=== PATIENT | female | born 1975 | race Caucasian/White ===

== ENCOUNTER → 2016-03-16 | Outpatient (CLI) | payer BC ==
[2016-03-16 08:22] LABS: Basophils % (A) 0 %; CH 30.6; Eosinophils # (A) 0.2 k/uL (0-0.7); Eosinophils % (A) 2 %; HCT 43.5 % (34.0-46.0); HDW 2.64; HGB 14.3 gm/dL (11.4-16.0); Luc # (Auto) 0.21; Luc % (Auto) 3; Lymphocytes # (A) 2.1 k/uL (1.0-4.8); Lymphocytes % (A) 27 %; MCH 29.7 pg (25.0-35.0); MCHC 32.8 g/dL (31.0-37.0); MCV 90.5 fL (80.0-100.0); Mean Platelet Volume 6.4; Monocytes # (A) 0.6 k/uL (0-1.0); Monocytes % (A) 8 %; Neutrophils # (A) 4.7 k/uL (1.3-7.7); Neutrophils % (A) 61 %; RBC 4.81 m/uL (3.80-5.40); RDW 12.8 % (11.5-15.5); WBC 7.7 k/uL (3.8-10.6); WBC (Perox) 7.79
[2016-03-16 08:37] LABS: ALT 41 U/L (9-52); AST 22 U/L (14-36); Alkaline Phosphatase 66 U/L (38-126); Anion Gap 13 mmol/L; Blood Urea Nitrogen 23 mg/dL (7-17); Calcium 9.3 mg/dL (8.4-10.2); Carbon Dioxide 25 mmol/L (22-30); Chloride 106 mmol/L (98-107); Cholesterol 184 mg/dL (<200); Glucose 87 mg/dL (74-99); HDL Cholesterol 57 mg/dL (40-60); Non-African American GFR(MDRD) >60 (>60 ml/min/1.73 sqM); Potassium 4.5 mmol/L (3.5-5.1); Sodium 144 mmol/L (137-145); Total Bilirubin 1.2 mg/dL (0.2-1.3); Total Protein 7.8 g/dL (6.3-8.2); Triglycerides 162 mg/dL (<150)
== END | disposition home or self-care (01) ==
LOC: LABWHC1 07:19
PROVIDERS: ATTEND Nurse Practitioner Family
DX: Z12.72 Encounter for screening for malignant neoplasm of vagina (principal); Z11.51 Encounter for screening for human papillomavirus (HPV); Z01.419 Encounter for gynecological examination (general) (routine) without abnormal findings
CPT/HCPCS: 36415; 80053; 80061; 85025

== ENCOUNTER → 2016-03-16 | Outpatient (CLI) | payer BC ==
--- NOTE | 2016-03-17 10:02 | MM ---
Reason for exam: screening (asymptomatic). Last mammogram was performed 7 years and 1 month ago. History: Patient is nulliparous. Family history of breast cancer in maternal grandmother. Taking hormonal contraceptives for 10 years beginning at age 23. Physical Findings: A clinical breast exam by your physician is recommended on an annual basis and results should be correlated with mammographic findings. MG Screening Mammo w CAD Bilateral CC and MLO view(s) were taken. Prior study comparison: February 11, 2009, right breast mammogram dig work up. February 05, 2009, bilateral digital screening mammogram. There are scattered fibroglandular densities. Finding: There are typically benign regional calcifications in the right breast. There is no discrete abnormality. ASSESSMENT: Benign, BI-RAD 2 RECOMMENDATION: Routine screening mammogram of both breasts in 1 year.
== END | disposition home or self-care (01) ==
LOC: RADMAMWWP 06:59
PROVIDERS: ATTEND Family Medicine
DX: Z12.31 Encounter for screening mammogram for malignant neoplasm of breast (principal)

== ENCOUNTER → 2016-07-01 | Outpatient (CLI) | payer BC ==
--- NOTE | 2016-07-01 22:04 | US ---
EXAMINATION TYPE: US venous doppler duplex LE LT DATE OF EXAM: 07/01/2016 8:57 PM COMPARISON: Prior in PACS CLINICAL HISTORY: Swelling. SIDE PERFORMED: Left TECHNIQUE: The lower extremity deep venous system is examined utilizing real time linear array sonog dimas with graded compression, doppler sonography and color-flow sonography. VESSELS IMAGED: External Iliac Vein (EIV) Common Femoral Vein Deep Femoral Vein Greater Saphenous Vein * Femoral Vein Popliteal Vein Small Saphenous Vein * Proximal Calf Veins (* superficial vessels) IMPRESSION: NEGATIVE FOR DEEP VENOUS THROMBOSIS, LEFT LOWER EXTREMITY.
== END | disposition home or self-care (01) ==
LOC: RADUSMAIN 20:31
PROVIDERS: ATTEND Physician Assistant Medical
DX: R22.42 Localized swelling, mass and lump, left lower limb (principal)

== ENCOUNTER → 2017-04-22 | Outpatient (CLI) | payer BC ==
--- NOTE | 2017-04-25 10:50 | MM ---
Reason for exam: screening (asymptomatic). Last mammogram was performed 1 year and 1 month ago. History: Patient is nulliparous. Family history of breast cancer in maternal grandmother. Taking hormonal contraceptives for 10 years beginning at age 23. Physical Findings: A clinical breast exam by your physician is recommended on an annual basis and results should be correlated with mammographic findings. MG Screening Mammo w CAD Bilateral CC and MLO view(s) were taken. Prior study comparison: March 16, 2016, bilateral MG screening mammo w CAD. February 11, 2009, right breast mammogram dig work up. There are scattered fibroglandular densities. No suspicious abnormality. No significant changes when compared with prior studies. ASSESSMENT: Negative, BI-RAD 1 RECOMMENDATION: Routine screening mammogram of both breasts in 1 year.
== END | disposition home or self-care (01) ==
LOC: RADMAMWWP 06:59
PROVIDERS: ATTEND Family Medicine
DX: Z12.31 Encounter for screening mammogram for malignant neoplasm of breast (principal)
CPT/HCPCS: 77067

== ENCOUNTER → 2017-05-12 | Outpatient (CLI) | payer BC ==
--- NOTE | 2017-05-12 17:48 | CONS ---
CONSULTATION DATE OF SERVICE: 05/12/2017 41-year-old lady has been re-evaluated in Sleep Center for obstructive sleep apnea- hypopnea syndrome. Last time I show the patient was in 2013. At that time, we did sleep studies which showed mild obstructive sleep apnea-hypopnea syndrome. Since that time, the patient is on treatment with CPAP and she is using her CPAP equipment every night for the whole night and she cannot sleep without her CPAP machine. With CPAP no snoring and quality of sleep is good. Her sleep schedule on working days from 11:00 p.m. to 6:30 a.m., on weekends from midnight or 1:00 a.m. until 7, 8 or 9:00 a.m. No problem in the falling asleep. She does have TV in bedroom. Sleeps on the side position. She may wake up from sleep up to 2 times with nocturia, but again there is no snoring. No sleepiness during the day. [place] Sleepiness Scale is 3. PAST MEDICAL HISTORY: Hypertension, history of cardiac arrhythmias, status post cardiac ablation. MEDICATIONS: Losartan. SOCIAL HISTORY: Quit smoking in 2004. Alcohol consumption occasional. REVIEW OF SYSTEMS: Basically negative. Patient's sleep through the night and no significant excessive daytime sleepiness. FAMILY HISTORY: Hypertension, hyperlipidemia, diabetes mellitus. PHYSICAL EXAM: GENERAL lady without distress. VITAL SIGNS BP 131/75, HR 68, RR 16, height 5 feet 8 inches, weight 278, BMI 42.2. Neck 16-1/4 inch in circumference. Temperature is 98.8, oxygen saturation room air 96%. HEENT PERRLA, EOMI, evaluation of oropharynx showed low position of soft palate. NECK Supple, no JVD. Thyroid is not palpable. LUNGS Clear to percussion and to auscultation. Good air exchange. No wheezing or rhonchi. HEART S1, S2 regular. No murmurs, gallops, or rubs. ABDOMEN Obese. Soft and nontender. Bowel sounds are present. No organomegaly appreciated. EXTREMITIES No clubbing or cyanosis. BANQUET COOK Awake, alert, and oriented X3. Cranial nerves 2 to 7 intact. There is no fasciculation or atrophy. noted. No focal deficits observed. I checked the patient's CPAP unit. CPAP pressure is 10 cm of water. Patient using equipment 100% of the time more than 4 hours. Average usage is 7 hours. IMPRESSION: 1. Obstructive sleep apnea-hypopnea syndrome. Patient demonstrated 100% compliance with treatment benefitting from treatment on treatment with a pressure of 7 cm of water. Presently, no symptoms of excessive daytime sleepiness, which had been present four years ago. 2. Obesity, BMI 42. Patient increased her weight around 17 pounds since the sleep study. 3. Hypertension. 4. History of cardiac arrhythmia. No recent episodes of cardiac arrhythmia after ablation and also while on treatment with CPAP. 5. Status post cardiac ablation procedure. PLAN: 1. Prescription for all necessary CPAP supplies including mask, tube, filters. 2. Continue to use CPAP equipment every night for the whole night. 3. No driving if feeling sleepiness. 4. Sleep hygiene with the time in bed for at least 8 hours. Thank you very much for allowing me to participate in management of your patient. Sincerely, Jamel Ac MD, PhD, FAASM Diplomat of [place] [employer] [place] [employer] Sack Sewer Machine of [facility] [place] [id number] / JLN: [id number] /
== END | disposition home or self-care (01) ==
LOC: SLEEP 16:06
PROVIDERS: ATTEND Internal Medicine
DX: G47.33 Obstructive sleep apnea (adult) (pediatric) (principal); I10 Essential (primary) hypertension; E66.9 Obesity, unspecified; Z99.89 Dependence on other enabling machines and devices; Z79.899 Other long term (current) drug therapy; Z87.891 Personal history of nicotine dependence; Z68.41 Body mass index [BMI] 40.0-44.9, adult; Z86.79 Personal history of other diseases of the circulatory system; Z98.890 Other specified postprocedural states
CPT/HCPCS: 99211

== ENCOUNTER → 2020-02-25 | Outpatient (CLI) | payer BC ==
--- NOTE | 2020-02-26 10:11 | MM ---
Reason for exam: screening (asymptomatic). Last mammogram was performed 2 years and 10 months ago. History: Patient is nulliparous. Family history of breast cancer in maternal grandmother. Took hormonal contraceptives for 10 years beginning at age 23. Physical Findings: A clinical breast exam by your physician is recommended on an annual basis and results should be correlated with mammographic findings. MG Screening Mammo w CAD Bilateral CC and MLO view(s) were taken. Prior study comparison: April 22, 2017, bilateral MG screening mammo w CAD. March 16, 2016, bilateral MG screening mammo w CAD. There are scattered fibroglandular densities. Benign calcifications. No significant changes when compared with prior studies. ASSESSMENT: Benign, BI-RAD 2 RECOMMENDATION: Routine screening mammogram of both breasts in 1 year.
== END | disposition home or self-care (01) ==
LOC: RADMAMWWP 07:58
PROVIDERS: ATTEND Obstetrics & Gynecology Obstetrics
DX: Z12.31 Encounter for screening mammogram for malignant neoplasm of breast (principal)
CPT/HCPCS: 77067

== ENCOUNTER → 2020-03-19 | Outpatient (CLI) | payer BC ==
--- NOTE | 2020-03-20 05:54 | SFUN ---
SLEEP CENTER FOLLOW UP NOTE DATE OF SERVICE: 03/19/2020 This is 44-year-old lady has been followed in the sleep Center for treatment of obstructive sleep apnea-hypopnea syndrome. The patient continues to use her CPAP equipment every night. She likes her machine. Denied any significant problems related to mask fitting, pressure or humidification. [place] Sleepiness Scale today is 5. I checked patient's CPAP unit. Pressure 7 cm of water, usage 29/30 nights for more than 4 hours with average usage is 7.06 hours. No information about apnea-hypopnea index on the machine. MEDICATIONS: Losartan, Cozaar. The patient forgot other medications. PHYSICAL EXAM: Patient in no distress. BP 134/87, HR 82, RR 15, height 5 feet 8 inches 3/4, weight 301.4 pounds, temperature 98.5, oxygen saturation at room air 94%. Oropharynx low position of soft palate. NECK: Supple, no JVD. Thyroid is not palpable. LUNGS: Clear to percussion and to auscultation. Good air exchange. No wheezing or rhonchi. HEART: S1, S2 regular. No murmurs, gallops, or rubs. ABDOMEN: Obese. Soft and nontender. Bowel sounds are present. No organomegaly appreciated. EXTREMITIES: No clubbing or cyanosis. BAKER HELPER: Awake, alert, and oriented X3. Cranial nerves 2 to 7 intact. There is no fasciculation or atrophy. noted. No focal deficits observed. IMPRESSION: 1. Obstructive sleep apnea-hypopnea syndrome. Patient demonstrated 100% compliance with treatment benefitting from treatment. 2. Obesity. The patient increased her weight more than 20 pounds since previous visit. 3. Hypertension. 4. History of cardiac arrhythmia. 5. Status post cardiac ablation procedure. PLAN: 1. Patient will continue to use PAP equipment every night for the whole night. 2. Sleep hygiene with regular time in bed for at least 7-1/2 to 8 hours. 3. Precautions related to driving. No driving if feeling sleepiness. 4. I will maintain all necessary prescription for PAP supplies including mask, tube, filters. 5. Watching weight. 6. No driving if feeling sleepiness. 7. Follow-up visit in 6 months or earlier if patient has any problems. Thank you very much for allowing me to participate in management of your patient. Sincerely, Jamel Ac MD, PhD, FAASM Diplomat of [place] [employer] [place] [employer] Rent Control Office Manager of [facility] [place] [email or web address] / JLN: [id number] /
== END | disposition home or self-care (01) ==
LOC: SLEEP 16:04
PROVIDERS: ATTEND Internal Medicine
DX: G47.33 Obstructive sleep apnea (adult) (pediatric) (principal); E66.9 Obesity, unspecified; I10 Essential (primary) hypertension; Z86.79 Personal history of other diseases of the circulatory system; Z98.890 Other specified postprocedural states; Z79.899 Other long term (current) drug therapy

== ENCOUNTER 2021-01-14 14:13 | Emergency (ER) | payer BC ==
[2021-01-14] MEDS ORDERED: ACETAMINOPHEN TAB 500 MG TAB PO STA (15:58)
--- NOTE | 2021-01-14 16:03 | ED ---
URI HPI - General Chief Complaint: Upper Respiratory Infection Stated Complaint: COVID+,wants antibodies Time Seen by Provider: 01/14/21 15:23 Source: patient, family, RN notes reviewed Mode of arrival: ambulatory Limitations: no limitations - History of Present Illness Initial Comments: 45-year-old female presents emergency from with chief complaint of COVID-19. Patient states she just is a positive states that she had multiple tests this week states she is tested positive today. She states that the cough last couple days. Patient complains of fever chills and body aches no chest pain. - Related Data Allergies Allergy/AdvReac Type Severity Reaction Status Date / Time cephalexin [From Keflex] Allergy Rash/Hives Verified 01/14/21 15:02 pseudoephedrine AdvReac Rapid Verified 01/14/21 15:02 [From Sudafed] Heart Rate Review of Systems ROS Statement: Those systems with pertinent positive or pertinent negative responses have been documented in the HPI. ROS Other: All systems not noted in ROS Statement are negative. Past Medical History History of Any Multi-Drug Resistant Organisms: None Reported Additional Past Surgical History / Comment(s): ablation 2004 Smoking Status: Never smoker Past Alcohol Use History: None Reported Past Drug Use History: None Reported General Exam General appearance: alert, in no apparent distress Head exam: Present: atraumatic, normocephalic, normal inspection Eye exam: Present: normal appearance, PERRL, EOMI. Absent: scleral icterus, conjunctival injection, periorbital swelling ENT exam: Present: normal exam, mucous membranes moist Neck exam: Present: normal inspection. Absent: tenderness, meningismus, lymphadenopathy Respiratory exam: Present: normal lung sounds bilaterally. Absent: respiratory distress, wheezes, rales, rhonchi, stridor Cardiovascular Exam: Present: regular rate, normal rhythm, normal heart sounds. Absent: systolic murmur, diastolic murmur, rubs, gallop, clicks Course Vital Signs 01/14/21 14:59 Temperature 99.7 F H Pulse Rate 99 Respiratory 19 Rate Blood Pressure 127/99 O2 Sat by Pulse 98 Oximetry Medical Decision Making - Medical Decision Making Patient receive monoclonal antibodies, was discharged in stable condition return parameters discussed. Disposition Clinical Impression: COVID-19 Disposition: HOME SELF-CARE Condition: Stable Instructions (If sedation given, give patient instructions): Coronavirus Disease 2019 (COVID-19) Additional Instructions: Please return to the Emergency Department if symptoms worsen or any other concerns. Is patient prescribed a controlled substance at d/c from ED?: No Referrals: Gretel Lara III, MD [Primary Care Provider] - 1-2 days Time of Disposition: 16:02
[2021-01-14] MEDS ORDERED: CASIRIVIMAB (REGN10933) (EUA) 600 MG, IMDEVIMAB (REGN10987) (EUA) 600 MG in SODIUM CHLO... IVPB ONE (16:30)
[2021-01-14] MEDS ORDERED: SODIUM CHLORIDE 0.9% 50 ML IVPB ONE (16:30)
[2021-01-14 16:44] VITALS: RESP 18
[2021-01-14 18:31] VITALS: BP 122/79; PULSE 93; TEMP 98.8
== END 2021-01-14 18:31 | disposition home or self-care (01) ==
LOC: EC 14:13
DX: U07.1 COVID-19 (principal); Z88.1 Allergy status to other antibiotic agents; Z88.8 Allergy status to other drugs, medicaments and biological substances
CPT/HCPCS: 99283

== ENCOUNTER → 2021-02-25 | Outpatient (CLI) | payer BC ==
--- NOTE | 2021-02-26 15:00 | MM ---
Reason for exam: screening (asymptomatic). Last mammogram was performed 1 year ago. History: Patient is nulliparous. Family history of breast cancer in maternal grandmother. Took hormonal contraceptives for 10 years beginning at age 23. Physical Findings: A clinical breast exam by your physician is recommended on an annual basis and results should be correlated with mammographic findings. MG Screening Mammo w CAD Bilateral CC and MLO view(s) were taken. Prior study comparison: February 25, 2020, bilateral MG screening mammo w CAD. April 22, 2017, bilateral MG screening mammo w CAD. There are scattered fibroglandular densities. There are benign appearing round calcifications bilaterally. There is no discrete abnormality. ASSESSMENT: Benign, BI-RAD 2 RECOMMENDATION: Routine screening mammogram of both breasts in 1 year.
== END | disposition home or self-care (01) ==
LOC: RADMAMWWP 07:39
PROVIDERS: ATTEND Obstetrics & Gynecology
DX: Z12.31 Encounter for screening mammogram for malignant neoplasm of breast (principal); Z80.3 Family history of malignant neoplasm of breast
CPT/HCPCS: 77067

== ENCOUNTER → 2022-01-06 | Outpatient (CLI) | payer BC ==
--- NOTE | 2022-01-06 17:18 | P.PN ---
Subjective DATE: 01/06/2022 FOLLOW UP VISIT. Patient with obstructive sleep apnea hypopnea syndrome return to sleep center for follow-up visit. Information from previous visit have been reviewed. Patient is using PAP equipment every night for the whole night, getting PAP supplies in time. The patient does not have significant problems with the mask, PAP unit and humidification. [place] sleepiness scale is 5, which is normal. I checked information from PAP unit. Pap unit is old, no information about apnea-hypopnea index PAP unit pressure 7 cm H2O. Usage is 90 % for more then 4 hours, average 7 hours per night. Leak is []l/m, which is in acceptable range. Apnea Hypopnea Index is [], which is normal. MEDICATIONS:1. Losartan 100 mg once a day 2. Triamterene During physical exam: GENERAL: A pleasant patient without any distress. VITAL SIGNS: BP 148/73, HR 88, RR 16, weight 312, patient increased to wait on about 11 pounds comparing to the previous visit, height 5 foot 8 inches, body mass index 47.4, temperature 98.6, oxygen saturation at room air 95 % . HEENT: PERRLA, EOMI.low position of soft palate, Mallapati 3. NECK: Supple. No JVD. LUNGS: Clear to percussion and to auscultation. Good air exchange. No wheezing or rhonchi. HEART: S1, S2 regular. ABDOMEN: Soft and nontender. Obese EXTREMITIES: No clubbing or cyanosis. LEMON GROWER: Awake, alert, and oriented x3. No focal deficit. Impressions: 1. Obstructive sleep apnea-hypopnea syndrome. Patient demonstrated great compliance with treatment, benefiting from treatment. 2. Obesity, body mass index 47.4. 3. Hypertension. 4. History of cardiac arrhythmia. 5. Status post cardiac ablation procedure. Plan: 1. Continue using PAP equipment every night for the whole night. 2. Prescription to replace CPAP unit to AutoPAP. [facility] CPAP unit is old, doesn't have information about apnea-hypopnea index. 3. PAP unit should stay lower then position of the head. 4. Advised patient to remove all remaining water from humidifier canister daily and make it dry after each usage. Refill canister with fresh distilled water before each usage. 5. Sleep hygiene with regular time in bed for at least 8 hours. 6. Precautions related to driving. No driving if feel any sleepiness. 7. I will maintain prescription for PAP supplies including mask, tube, filters. 8. Follow up visit in 1-2 months after patient will get new CPAP unit. 9. Aggressive losing weight. Thank you very much for allowing me to participate in the management of your patient. Jamel Ac MD, PhD, FAASM. Diplomat of [place] [employer], Sleep Medicine Board by [place] [employer] Laser Systems Engineer of [facility] [place]
== END | disposition home or self-care (01) ==
LOC: SLEEP 16:42
PROVIDERS: ATTEND Internal Medicine
DX: G47.33 Obstructive sleep apnea (adult) (pediatric) (principal); E66.9 Obesity, unspecified; I10 Essential (primary) hypertension; Z68.42 Body mass index [BMI] 45.0-49.9, adult; Z86.79 Personal history of other diseases of the circulatory system

== ENCOUNTER → 2022-06-10 | Outpatient (CLI) | payer BC ==
[2022-06-10 19:27] LABS: HCT 46.6 % (37.2-46.3); HGB 14.9 g/dL (12.0-15.0); MCH 29.3 pg (27.0-32.0); MCV 91.6 fL (80.0-97.0); NRBC Per 100 WBC 0 /100 WBCS (0.0-0.0); Platelet Count 355 X 10*3/uL (140-440); RBC 5.09 X 10*6/uL (4.10-5.20); RDW 13.5 % (11.5-14.5); WBC 9.37 X 10*3/uL (4.50-10.00)
[2022-06-10 20:47] LABS: ALT 48 U/L (8-44); AST 43 U/L (13-35); African American GFR (CKD) 91.9 (60.0-200.0); Albumin 4.6 g/dL (3.8-4.9); Albumin/Globulin Ratio 1.45 (1.60-3.17); Alkaline Phosphatase 67 U/L (41-126); BUN/Creat Ratio 28.44 Ratio (12.00-20.00); Blood Urea Nitrogen 24.6 mg/dL (9.0-27.0); Calcium 10.5 mg/dL (8.7-10.3); Carbon Dioxide 26.6 mmol/L (20.0-27.5); Chloride 98 mmol/L (96-109); Chol/HDL Ratio 3.65 Ratio; Globulin 3.2 g/dL (1.6-3.3); Glucose 117 mg/dL (70-110); LDL Cholesterol,Calculated 109.2 mg/dL (0.0-131.0); Non-African American GFR(CKD) 79.3 (60.0-200.0); Potassium 4.1 mmol/L (3.5-5.5); Sodium 140 mmol/L (135-145); Total Protein 7.8 g/dL (6.2-8.2)
== END | disposition home or self-care (01) ==
LOC: LABWHC1 07:16
PROVIDERS: ATTEND Internal Medicine Clinical Cardiac Electrophysiology
DX: I10 Essential (primary) hypertension (principal); I51.7 Cardiomegaly; E66.9 Obesity, unspecified
CPT/HCPCS: 36415; 80053; 80061; 82627; 83036; 84439; 84443; 84481; 85027; 86038; 86140

== ENCOUNTER → 2022-11-04 | Outpatient (CLI) | payer BC ==
--- NOTE | 2022-11-04 17:04 | P.PN ---
Subjective DATE: 11/04/2022 FOLLOW UP VISIT. Patient with obstructive sleep apnea hypopnea syndrome return to sleep center for follow-up visit. Information from previous visit have been reviewed. Patient is using PAP equipment every night for the whole night, getting PAP supplies in time. The patient does not have significant problems with the mask, PAP unit and humidification. [place] sleepiness scale is 5, which is normal. I checked information from PAP unit. PAP unit pressure 5-10, average 9.9 cm H2O. Usage is 100 % for more then 4 hours, average 6.7 hours per night. Leak is 1 l/m, which is in acceptable range. Apnea Hypopnea Index is 0.6, which is normal. MEDICATIONS:1. Losartan 2. Triamteren 3. Wegovy During physical exam: GENERAL: A pleasant patient without any distress. VITAL SIGNS: BP 110/74, HR 99, RR 16 , weight to 90.8, temperature 98.5, oxygen saturation at room air 96 % . HEENT: PERRLA, EOMI.low position of soft palate, Mallapati 3 . NECK: Supple. No JVD. LUNGS: Clear to percussion and to auscultation. Good air exchange. No wheezing or rhonchi. HEART: S1, S2 regular. ABDOMEN: Soft and nontender. Slightly obese EXTREMITIES: No clubbing or cyanosis. TELESERVICES REPRESENTATIVE: Awake, alert, and oriented x3. No focal deficit. Impressions: 1. Obstructive sleep apnea-hypopnea syndrome. Patient demonstrated great compliance with treatment, benefiting from treatment. 2. Obesity, patient lost 26 pounds comparing to the previous visit. 3. Hypertension. 4. History of cardiac arrhythmia. 5. Status post cardiac ablation. Plan: 1. Continue using PAP equipment every night for the whole night. 2. To change air filter at least 1-2 times per month. 3. PAP unit should stay lower then position of the head. 4. Advised patient to remove all remaining water from humidifier canister daily and make it dry after each usage. Refill canister with fresh distilled water before each usage. 5. Sleep hygiene with regular time in bed for at least 8 hours. 6. Precautions related to driving. No driving if feel any sleepiness. 7. I will maintain prescription for PAP supplies including mask, tube, filters. 8. Follow up visit in 6 months or earlier if patient has any problems. 9. Watching and continue losing weight. Thank you very much for allowing me to participate in the management of your patient. Jamel Ac MD, PhD, FAASM. Diplomat of [place] [employer] Medicine, Sleep Medicine Board by [place] [employer] Medicine Electric Motor Tester of [facility] [place]
== END ==
LOC: 3 N SLEEP 16:28
PROVIDERS: ATTEND Internal Medicine
DX: G47.33 Obstructive sleep apnea (adult) (pediatric) (principal); E66.9 Obesity, unspecified; I10 Essential (primary) hypertension; Z98.890 Other specified postprocedural states; Z99.89 Dependence on other enabling machines and devices; Z86.79 Personal history of other diseases of the circulatory system; Z79.899 Other long term (current) drug therapy; Z88.1 Allergy status to other antibiotic agents; Z88.8 Allergy status to other drugs, medicaments and biological substances
CPT/HCPCS: 99212

== ENCOUNTER → 2022-11-19 | Outpatient (CLI) | payer BC ==
[2022-11-19 11:07] LABS: HCT 46.3 % (37.2-46.3); HGB 14.9 d/dL (12.0-15.0); MCH 29.6 pg (27.0-32.0); MCHC 32.2 d/dL (32.0-37.0); Mean Platelet Volume 10.7 FL (9.5-12.2); NRBC Per 100 WBC 0 X 10*3/uL (0.00-0.01); Platelet Count 426 X 10*3/uL (140-440); RBC 5.03 X 10*6/uL (4.10-5.20); RDW 14.1 % (11.5-14.5); WBC 8.33 X 10*3/uL (4.50-10.00)
[2022-11-19 14:19] LABS: BUN/Creat Ratio 22.88 Ratio (12.00-20.00); Blood Urea Nitrogen 18.3 mg/dL (9.0-27.0); Chloride 102 mmol/L (96-109); Chol/HDL Ratio 3.66 Ratio; Glucose 95 mg/dL (70-110); LDL Cholesterol,Calculated 89.7 mg/dL (0.0-131.0); Potassium 4.1 mmol/L (3.5-5.5); Sodium 136 mmol/L (135-145)
[2022-11-19 14:20] LABS: ALT 23 U/L (8-44); AST 19 U/L (13-35); Albumin 4.3 d/dL (3.8-4.9); Albumin/Globulin Ratio 1.59 Ratio (1.60-3.17); Alkaline Phosphatase 66 U/L (41-126); Calcium 9.2 mg/dL (8.7-10.3); Carbon Dioxide 22.4 mmol/L (21.6-31.8); Globulin 2.7 d/dL (1.6-3.3); Total Bilirubin 1.3 mg/dL (0.3-1.2)
== END | disposition home or self-care (01) ==
LOC: LABWHC1 07:37
PROVIDERS: ATTEND Physician Assistant Medical
DX: I10 Essential (primary) hypertension (principal); E66.9 Obesity, unspecified; R73.01 Impaired fasting glucose
CPT/HCPCS: 36415; 80053; 80061; 83036; 84443; 85027

== ENCOUNTER → 2023-01-20 | Outpatient (CLI) | payer BC ==
[2023-01-20 11:12] LABS: HCT 43.9 % (37.2-46.3); HGB 14.7 g/dL (12.0-15.0); MCH 29.5 pg (27.0-32.0); MCHC 33.5 g/dL (32.0-37.0); NRBC Per 100 WBC 0 X 10*3/uL (0.00-0.01); Platelet Count 367 X 10*3/uL (140-440); RBC 4.99 X 10*6/uL (4.10-5.20); RDW 13.2 % (11.5-14.5); WBC 8.19 X 10*3/uL (4.50-10.00)
[2023-01-20 11:25] LABS: Blood Urea Nitrogen 14.6 mg/dL (9.0-27.0); Chloride 100 mmol/L (96-109); Potassium 3.9 mmol/L (3.5-5.5); Sodium 136 mmol/L (135-145)
== END | disposition home or self-care (01) ==
LOC: LABPAT 07:06
PROVIDERS: ATTEND Internal Medicine Clinical Cardiac Electrophysiology
DX: Z01.812 Encounter for preprocedural laboratory examination (principal); I10 Essential (primary) hypertension; E78.5 Hyperlipidemia, unspecified
CPT/HCPCS: 80051; 82565; 84520; 85027

== ENCOUNTER 2023-01-25 13:29 | Day surgery (SDC) | payer BC ==
[2023-01-20 15:50] VITALS: BMI 43.0
[~2023-01-25 13:29] MED LIST: ALPRAZolam 0.25 MG TAB PO PRN; ALPRAZolam 0.5 MG TAB PO PRN; ASPIRIN 325 MG TAB PO STA; HEPARIN SODIUM,PORCINE (1 ML) 2,500 UNIT in SODIUM CHLORIDE 0.9% 250 ML IRRIGATION PRN; HEPARIN SODIUM,PORCINE 10,000 UNIT in SODIUM CHLORIDE 0.9% 1,000 ML IRRIGATION PRN; NITROGLYCERIN SL TABS 0.4 MG TAB SUBLINGUAL PRN
[2023-01-25] MEDS ORDERED: SODIUM CHLORIDE 0.9% 500 ML 500 ML IV ONE (13:57)
[2023-01-25 14:27] VITALS: RESP 16
[2023-01-25] MEDS ORDERED: LIDOCAINE 1% INJ 10MG/ML (20 ML MDV) ONE (17:39)
[2023-01-25] MEDS ORDERED: MIDAZOLAM 2 MG/2 ML VIAL IVP ONE (17:56)
[2023-01-25] MEDS ORDERED: LIDOCAINE 1% INJ 10MG/ML (30 ML VIAL-PF) SQ ONE (17:56)
[2023-01-25 18:32] LABS: O2 Sat Blood Gas 74.8 %
[2023-01-25 18:40] LABS: O2 Sat Blood Gas 92.9 %
[2023-01-25 18:42] LABS: O2 Sat Blood Gas 74.4 %
[2023-01-25 18:45] LABS: O2 Sat Blood Gas 73.9 %
--- NOTE | 2023-01-25 18:53 | P.EPPROC ---
- EP Procedure Note Electrophysiology Procedure Note: Diagnosis Elevated pulmonary artery pressures on noninvasive imaging History of hypertension Increased BMI Final diagnosis Normal right-sided pressures by invasive measurements No oxygen step up Procedure: Right heart cath and oxygen saturations Patient was brought to the EP lab in a fasting state. 1 mg of Versed was given. Patient is fairly awake through the procedure did local anesthesia to the right groin. Venous access obtained and an 8-Lux[place]bourg[place] sheath was placed in the right femoral vein A [place] after was floated into the right heart and the following measurements were made Pulmonary artery position 25/12 mmHg Oxygen saturation equals 75% Pulmonary wedge position 9/8 mmHg Oxygen saturation equals 93% Right ventricle 22/2 mmHg Oxygen saturation equals 74% Right atrium 8/7 mmHg Oxygen saturation equals 75% Catheter was removed. Venous sheaths was removed and Vascade closure device applied successfully. Patient tolerated the procedure well without any acute complications Conscious sedation Patient underwent EP procedure under conscious sedation/moderate sedation, monitoring of the level of consciousness and physiologic parameters including but not limited to vital signs and oxygenation. Patient tolerated the procedure well without any acute complications. Start time: 1736 Stop time: 1849
[2023-01-25] MEDS: SODIUM CHLORIDE 0.9% 1,000 ML in EMPTY BAG 1 BAG IV SCH (20:00)
[2023-01-25 20:18] VITALS: BP 109/71; PULSE 81; TEMP 99.2
[2023-01-25 20:31] LABS: Glucose,Whole Blood 74 mg/dL (70-110)
== END 2023-01-25 22:34 | disposition home or self-care (01) ==
LOC: CATHEP 13:29 → 3SCARD 18:15 → CATHEP 22:34
PROVIDERS: ATTEND Internal Medicine Clinical Cardiac Electrophysiology
DX: I27.20 Pulmonary hypertension, unspecified (principal); R73.03 Prediabetes; E78.5 Hyperlipidemia, unspecified; F17.210 Nicotine dependence, cigarettes, uncomplicated; Z79.899 Other long term (current) drug therapy
CPT/HCPCS: 93451; 85018; 82810; 81025; C1894; C1769; C1760; J2250; J2001

== ENCOUNTER → 2023-05-18 | Outpatient (CLI) | payer BC ==
[2023-05-18 17:04] VITALS: BP 121/77; PULSE 76; RESP 16; TEMP 98.1
--- NOTE | 2023-05-18 17:08 | P.PN ---
Subjective DATE: 05/18/2023 FOLLOW UP VISIT. Patient with obstructive sleep apnea hypopnea syndrome return to sleep center for follow-up visit. Information from previous visit have been reviewed. Patient is using PAP equipment every night for the whole night, getting PAP supplies in time. The patient does not have significant problems with the mask, PAP unit and humidification. [place] sleepiness scale is 2, which is perfect. I checked information from PAP unit. PAP unit pressure 5-10 cm H2O. Usage is 100% for more then 4 hours, average 7 hours per night. Leak is perfect 0 l/m. Apnea Hypopnea Index is 0.4, which is normal. MEDICATIONS:1. Losartan 100 mg once a day 2. Triamterene 3. Wegovy During physical exam: GENERAL: A pleasant patient without any distress. VITAL SIGNS: Please see below, weight 285 pounds, BMI 43.3, patient lost 31 pounds. HEENT: PERRLA, EOMI.low position of soft palate, Mallapati 3 . NECK: Supple. No JVD. LUNGS: Clear to percussion and to auscultation. Good air exchange. No wheezing or rhonchi. HEART: S1, S2 regular. ABDOMEN: Soft and nontender. Slightly obese EXTREMITIES: No clubbing or cyanosis. COAL PICKER: Awake, alert, and oriented x3. No focal deficit. Impressions: 1. Obstructive sleep apnea-hypopnea syndrome. Patient demonstrated great compliance with treatment, benefiting from treatment. 2. Obesity, BMI 43.3, patient lost 31 pounds comparing with previous visit. 3. Hypertension. 4. History of cardiac arrhythmia. 5. Status post cardiac ablation. Plan: 1. Continue using PAP equipment every night for the whole night. 2. To change air filter at least 1-2 times per month. 3. PAP unit should stay lower then position of the head. 4. Advised patient to remove all remaining water from humidifier canister daily and make it dry after each usage. Refill canister with fresh distilled water before each usage. 5. Sleep hygiene with regular time in bed for at least 8 hours. 6. Precautions related to driving. No driving if feel any sleepiness. 7. I will maintain prescription for PAP supplies including mask, tube, filters. 8. Follow up visit in 6 months or earlier if patient has any problems. 9. Watching and continue losing weight. Thank you very much for allowing me to participate in the management of your patient. Jamel Ac MD, PhD, FAASM. Diplomat of [place] Board [employer] Sleep Medicine, Sleep Medicine Board by [place] Board of Internal Medicine Orchid Transplanter of [facility] [place] Objective - Vital Signs Vital signs: Vital Signs Temp 98.1 F 05/18/23 16:55 Pulse 76 05/18/23 16:55 Resp 16 05/18/23 16:55 BP 121/77 05/18/23 16:55 Pulse Ox 96 05/18/23 16:55 FiO2 Intake & Output 05/17/23 05/18/23 05/18/23 18:59 06:59 18:59 Weight 129.274 kg
== END ==
LOC: 3 N SLEEP 16:20
PROVIDERS: ATTEND Internal Medicine
DX: G47.33 Obstructive sleep apnea (adult) (pediatric) (principal); E66.9 Obesity, unspecified; I10 Essential (primary) hypertension; Z86.79 Personal history of other diseases of the circulatory system; Z98.890 Other specified postprocedural states; Z99.89 Dependence on other enabling machines and devices; Z68.41 Body mass index [BMI] 40.0-44.9, adult; Z79.899 Other long term (current) drug therapy; Z88.1 Allergy status to other antibiotic agents; Z88.8 Allergy status to other drugs, medicaments and biological substances
CPT/HCPCS: 99212

== ENCOUNTER → 2024-01-19 | Outpatient (CLI) | payer BC ==
[2024-01-19 17:07] VITALS: BP 137/83; PULSE 81; RESP 16; TEMP 98.2
--- NOTE | 2024-01-19 17:21 | P.PROGSL ---
Subjective DATE: 01/19/2024 FOLLOW UP VISIT. Patient with obstructive sleep apnea hypopnea syndrome return to sleep center for follow-up visit. Information from previous visit have been reviewed. Patient is using PAP equipment every night for the whole night, getting PAP supplies in time. The patient does not have significant problems with the mask, PAP unit and humidification. [place] sleepiness scale is 7, which is normal. I checked information from PAP unit. PAP unit pressure 5-10, average 9.9 cm H2O. Usage is 100% for more then 4 hours, average 6.7 hours per night. Leak is 8 l/m, which is in acceptable range. Apnea Hypopnea Index is 0.3, which is normal. MEDICATIONS have been reviewed, please see below. During physical exam: GENERAL: A pleasant patient without any distress. VITAL SIGNS: Please see below, weight is 303.6 lbs. HEENT: PERRLA, EOMI.low position of soft palate, [place] 3. NECK: Supple. No JVD. LUNGS: Clear to percussion and to auscultation. Good air exchange. No wheezing or rhonchi. HEART: S1, S2 regular. ABDOMEN: Soft and nontender. Obese EXTREMITIES: No clubbing or cyanosis. DINING ROOM CAPTAIN: Awake, alert, and oriented x3. No focal deficit. Impressions: 1. Obstructive sleep apnea-hypopnea syndrome. Patient demonstrated great compliance with treatment, benefiting from treatment. 2. Obesity, BMI 46.4, patient increased weight on 18 pounds comparing with previous visit. 3. Hypertension. 4. History of cardiac arrhythmia, no recent episodes. 5. Status post cardiac ablation. Plan: 1. Continue using PAP equipment every night for the whole night. 2. Sleep hygiene with regular time in bed for at least 7.5-8 hours 3. PAP unit should stay lower then position of the head. 4. Advised patient to remove all remaining water from humidifier canister daily and make it dry after each usage. Refill canister with fresh distilled water before each usage. 5. Watching and losing weight. 6. Precautions related to driving. No driving if feel any sleepiness. 7. I will maintain prescription for PAP supplies including mask, tube, filters. 8. Follow up visit in 8 months or earlier if patient has any problems. Thank you very much for allowing me to participate in the management of your patient. Jamel Ac MD, PhD, FAASM. Diplomat of [place] [employer], Sleep Medicine Board by [place] [employer] [facility] [place] Objective - Vital Signs Vital Signs: Vital Signs Temp 98.2 F 01/19/24 17:05 Pulse 81 01/19/24 17:05 Resp 16 01/19/24 17:05 BP 137/83 01/19/24 17:05 Pulse Ox 95 01/19/24 17:05 FiO2 Intake & Output 01/18/24 01/19/24 01/19/24 18:59 06:59 18:59 Weight 137.609 kg Home Medications: Home Medications Medication Instructions Recorded Confirmed Type Losartan Potassium 100 mg PO DAILY 01/14/21 05/18/23 History Triamterene-Hctz 37.5-25Mg 1 cap PO DAILY 01/14/21 05/18/23 History [Dyazide 37.5-25 Capsule] Semaglutide [Wegovy] 2.4 mg SQ TU 01/20/23 05/18/23 History
== END ==
LOC: 3 N SLEEP 16:40
PROVIDERS: ATTEND Internal Medicine
DX: G47.33 Obstructive sleep apnea (adult) (pediatric) (principal); E66.9 Obesity, unspecified; I10 Essential (primary) hypertension; Z98.890 Other specified postprocedural states; Z99.89 Dependence on other enabling machines and devices; Z86.79 Personal history of other diseases of the circulatory system; Z68.42 Body mass index [BMI] 45.0-49.9, adult; Z88.1 Allergy status to other antibiotic agents; Z88.8 Allergy status to other drugs, medicaments and biological substances; Z79.899 Other long term (current) drug therapy
CPT/HCPCS: 99212

== ENCOUNTER 2024-04-24 09:33 | Day surgery (SDC) | payer BC ==
[~2024-04-24 09:33] MED LIST changes: -ALPRAZolam 0.25 MG TAB PO PRN; -ALPRAZolam 0.5 MG TAB PO PRN; -ASPIRIN 325 MG TAB PO STA; -HEPARIN SODIUM,PORCINE (1 ML) 2,500 UNIT in SODIUM CHLORIDE 0.9% 250 ML IRRIGATION PRN; -HEPARIN SODIUM,PORCINE 10,000 UNIT in SODIUM CHLORIDE 0.9% 1,000 ML IRRIGATION PRN; +LIDOCAINE 1% (10MG/ML) FOR IV START INTRADERMA PRN; -NITROGLYCERIN SL TABS 0.4 MG TAB SUBLINGUAL PRN
[2024-04-24 10:17] VITALS: TEMP 97.7
[2024-04-24] MEDS: LACTATED RINGERS 1,000 ML IV SCH (10:17)
[2024-04-24] MEDS: IV FLUID CONTINUATION 1,000 ML IV ONE (10:18)
[2024-04-24] MEDS ORDERED: PROPOFOL 10 MG/ML 20 ML VIAL IV ONE (10:23)
[2024-04-24] MEDS ORDERED: LIDOCAINE 1% INJ 10MG/ML (20 ML MDV) ONE (10:23)
--- NOTE | 2024-04-24 10:28 | P.GSHP ---
History of Present Illness H&P Date: 04/24/24 Chief Complaint: Abnormal Cologuard 48-year-old female here for colonoscopy. She has not had 1 previously. Patient had a recent Cologuard that was abnormal. Admits to rare episodes of bright red blood per rectum. No family history of colon cancer. Past Medical History Past Medical History: Hypertension, Sleep Apnea/CPAP/BIPAP Additional Past Medical History / Comment(s): AV reginald reentry tachycardia - c ardiac ablation done, uses CPAP History of Any Multi-Drug Resistant Organisms: None Reported Past Surgical History: Cardiac Ablation, Heart Catheterization Additional Past Surgical History / Comment(s): ablation 2004 Past Anesthesia/Blood Transfusion Reactions: No Reported Reaction Smoking Status: Former smoker - Past Family History Father Family Medical History: Cancer Additional Family Medical History / Comment(s): kidney cancer, benign brain tumor Medications and Allergies Home Medications Medication Instructions Recorded Confirmed Type Losartan Potassium 100 mg PO HS 01/14/21 04/24/24 History Triamterene-Hctz 37.5-25Mg 1 cap PO DAILY 01/14/21 04/20/24 History [Dyazide 37.5-25 Capsule] Allergies Allergy/AdvReac Type Severity Reaction Status Date / Time cephalexin [From Keflex] Allergy Rash/Hives Verified 04/24/24 10:17 pseudoephedrine AdvReac Rapid Verified 04/24/24 10:17 [From Sudafed] Heart Rate Surgical - Exam Vital Signs Temp Pulse Resp BP Pulse Ox 97.7 F 85 18 132/88 97 04/24/24 10:13 04/24/24 10:13 04/24/24 10:13 04/24/24 10:13 04/24/24 10:13 Physical exam: General: Well-developed, well-nourished HEENT: Normocephalic, sclerae nonicteric Abdomen: Nontender, nondistended Extremities: No edema Neuro: Alert and oriented Assessment and Plan (1) Abnormal stool test Narrative/Plan: Will proceed with colonoscopy at this time. Current Visit: Yes Status: Acute Code(s): R19.5 - OTHER FECAL ABNORMALITIES SNOMED Code(s): 507495927
--- NOTE | 2024-04-24 10:43 | P.PCN ---
Date of Procedure: 04/24/24 Procedure(s) Performed: PREOPERATIVE DIAGNOSIS: Abnormal Cologuard POSTOPERATIVE DIAGNOSIS: Colon polyps PROCEDURE: Colonoscopy with snare polypectomy ANESTHESIA: MAC SURGEON: Cesar Orellana M.D. SPECIMENS: Polyps ENDOSCOPIC PROCEDURE: The patient was placed on the endoscopy table in the left decubitus position. The Olympus colonoscope was inserted into the anus and passed under direct visualization to the base of the cecum. The appendiceal orifice was visualized. From that point the scope was slowly withdrawn inspecting all surfaces carefully. There were no neoplastic inflammatory or polypoid lesions throughout the cecum or ascending colon. In the transverse colon a small polyp was seen and removed using the snare with cautery technique. Descending colon appeared normal. In the sigmoid proximately at 35 cm there was a pedunculated polyp measuring 1.1 cm. This was removed using the snare with cautery technique. In the rectum there was noted be a small superficial polyp measuring about 4 to 5 mm. This was removed using the snare with cautery technique. The remainder of the rectum was normal. There was no visible diverticulosis. Digital rectal examination was normal. The patient was taken to the recovery room in stable condition per anesthesia guidelines. RECOMMENDATIONS: Await biopsy results. Anticipate repeat colonoscopy 3 to 5 years. Will call with timing.
[2024-04-24 11:10] VITALS: BP 119/54; PULSE 84; RESP 18
== END 2024-04-24 11:28 | disposition home or self-care (01) ==
LOC: ORWHC2ENDO 09:33
PROVIDERS: ATTEND Surgery
DX: D12.5 Benign neoplasm of sigmoid colon (principal); D12.8 Benign neoplasm of rectum; I08.9 Rheumatic multiple valve disease, unspecified; I10 Essential (primary) hypertension; G47.33 Obstructive sleep apnea (adult) (pediatric); Z87.891 Personal history of nicotine dependence; Z88.1 Allergy status to other antibiotic agents; Z99.89 Dependence on other enabling machines and devices; Z79.899 Other long term (current) drug therapy
CPT/HCPCS: 81025; 88305; 45385; J2003; J2704

== ENCOUNTER → 2024-09-05 | Outpatient (CLI) | payer BC ==
[2024-09-05 16:07] LABS: Basophils # (A) 0.04 X 10*3/uL (0.00-0.10); Basophils % (A) 0.6 %; Eosinophils # (A) 0.11 X 10*3/uL (0.04-0.35); Eosinophils % (A) 1.5 %; HCT 45.0 % (37.2-46.3); HGB 15.2 g/dL (12.0-15.0); Immature Grans, Automated 0.40 %; Lymphocytes # (A) 2.43 X 10*3/uL (0.90-5.00); Lymphocytes % (A) 33.4 %; MCH 29.7 pg (27.0-32.0); MCHC 33.8 g/dL (32.0-37.0); MCV 88.1 FL (80.0-97.0); Monocytes # (A) 0.71 X 10*3/uL (0.20-1.00); Monocytes % (A) 9.8 %; NRBC Per 100 WBC 0 X 10*3/uL (0.00-0.01); Neutrophils # (A) 3.95 X 10*3/uL (1.80-7.70); Neutrophils % (A) 54.3 %; Platelet Count 338 X 10*3/uL (140-440); RBC 5.11 X 10*6/uL (4.10-5.20); RDW 13.2 % (11.5-14.5); WBC 7.27 X 10*3/uL (4.50-10.00)
[2024-09-05 16:08] LABS: ALT 42 U/L (8-44); AST 41 U/L (13-35); Albumin 4.2 g/dL (3.8-4.9); Albumin/Globulin Ratio 1.50 Ratio (1.60-3.17); Alkaline Phosphatase 66 U/L (41-126); Anion Gap 14.40 mmol/L (4.00-12.00); BUN/Creat Ratio 24.71 Ratio (12.00-20.00); Blood Urea Nitrogen 17.3 mg/dL (9.0-27.0); Calcium 9.2 mg/dL (8.7-10.3); Carbon Dioxide 22.6 mmol/L (21.6-31.8); Chloride 102 mmol/L (96-109); Cholesterol 178.00 mg/dL (0.00-200.00); Globulin 2.8 g/dL (1.6-3.3); Glucose 104 mg/dL (70-110); HDL Cholesterol 47.20 mg/dL (40.00-60.00); LDL Cholesterol,Calculated 99.2 mg/dL (0.0-131.0); Magnesium 2.2 mg/dL (1.5-2.4); Potassium 4.1 mmol/L (3.5-5.5); Sodium 139 mmol/L (135-145); Total Protein 7.0 g/dL (6.2-8.2); Triglycerides 158.00 mg/dL (0.00-149.00); VLDL Calculation 31.60 mg/dL (5.00-40.00)
== END | disposition home or self-care (01) ==
LOC: LABWHC1 11:39
PROVIDERS: ATTEND Internal Medicine Clinical Cardiac Electrophysiology
DX: Z00.00 Encounter for general adult medical examination without abnormal findings (principal); I10 Essential (primary) hypertension; E78.5 Hyperlipidemia, unspecified
CPT/HCPCS: 36415; 80053; 80061; 83036; 83735; 84443; 85025